=== PATIENT | female | born 1945 | race African-American/Black ===

== ENCOUNTER 2024-10-04 07:09 | Inpatient (IN) | payer MEDICARE, MEDICAID ==
[2024-10-04] VITALS (10 sets, daily range): BP systolic 109–124; BP diastolic 57–72; PULSE 68–104; RESP 11–26; TEMP 36.6–36.6404; O2SAT 99–100
[~2024-10-04] VITALS: Ht 160 cm; Wt 51.7 kg
[2024-10-04] MEDS: METHYLPREDNISOLONE SOD SUCC 125MG/2ML (ACT-O-VIAL) IV ONE (07:25)
[2024-10-04] MEDS: MAGNESIUM 2 G PREMIX 50 ML IV ONE (07:25)
[2024-10-04] MEDS: ALBUTEROL (0.083%) 2.5MG/3ML NEB HHN SCH (07:54)
[2024-10-04] MEDS: IPRATROPIUM BROMIDE (0.02%) 0.5MG/2.5ML NEB HHN SCH (07:55)
[2024-10-04 08:01] LABS: HEMATOCRIT. 42.0 % (36.0-48.0); HEMOGLOBIN. 13.6 g/dL (12.0-16.0); MEAN PLATELET VOLUME 7.6 fl (7.4-10.4); PLATELET 171 x1000/uL (130-400); RED BLOOD CELL COUNT 4.34 mill/uL (4.2-5.4); RED CELL DISTRIBUTION WIDTH 16.1 % (11.6-14.6)
[2024-10-04 08:22] LABS: CREATININE 0.9 mg/dL (0.6-1.0); UREA NITROGEN BLOOD 12 mg/dL (9-23)
[2024-10-04 08:31] LABS: TROPONIN I HIGH SENSITIVITY 120 ng/L (3.0-34)
[2024-10-04 08:36] LABS: BAND% 8.0 % (1.0-6.0); LYMPHOCYTES % MANUAL 2.0 % (20.0-60.0); MONOCYTES % MANUAL 14.0 % (2.0-8.0); NEUTROPHILS % MANUAL 76.0 % (45.0-75.0)
[2024-10-04 08:38] LABS: PLATELET ESTIMATE NORMAL
[2024-10-04 09:57] LABS: BG BASE EXCESS 13.5 mmol/L (-2.0-3.0); BG CARBOXYHEMOGLOBIN 1.5 % (0.5-1.5); BG DEOXYHEMOGLOBIN 5.0 % (0.0-5.0); BG FRACTION INSPIRED OXYGEN 60; BG HCO3 ACT 44.2 mmol/L (21.0-28.0); BG METHEMOGLOBIN 0.2 % (0.5-1.5); BG OXYGEN SATURATION 94.9 % (94.0-98.0); BG OXYHEMOGLOBIN 93.3 % (94.0-98.0); BG PCO2 89.1 mmHg (32.0-45.0); BG PH 7.313 (7.350-7.450); BG PO2 83.4 mmHg (83.0-108.0); BG SAMPLE SITE RIGHT BRACHIAL; BG TOTAL HEMOGLOBIN 14.5 g/dL (12.0-16.0); BG VENT MODE MASK - BIPAP; BG VENT RATE 20.0 set
[2024-10-04 11:55] LABS: BG BASE EXCESS 13.9 mmol/L (-2.0-3.0); BG CARBOXYHEMOGLOBIN 1.0 % (0.5-1.5); BG DEOXYHEMOGLOBIN 4.3 % (0.0-5.0); BG FRACTION INSPIRED OXYGEN 60; BG HCO3 ACT 45.0 mmol/L (21.0-28.0); BG METHEMOGLOBIN 0.2 % (0.5-1.5); BG OXYGEN SATURATION 95.6 % (94.0-98.0); BG OXYHEMOGLOBIN 94.5 % (94.0-98.0); BG PCO2 92.1 mmHg (32.0-45.0); BG PH 7.307 (7.350-7.450); BG PO2 86.9 mmHg (83.0-108.0); BG TOTAL HEMOGLOBIN 14.7 g/dL (12.0-16.0); BG VENT MODE MASK - BIPAP; BG VENT RATE 20.0 set
[2024-10-04] MEDS ORDERED: IPRATROPIUM/ALBUTEROL 0.5-3(2.5)MG/3ML NEB HHN PRN (14:30)
[2024-10-04] MEDS ORDERED: DOCUSATE SODIUM 100MG CAPSULE PO PRN (14:30)
[2024-10-04] MEDS ORDERED: CLONIDINE 0.1MG TABLET PO PRN (14:30)
[2024-10-04] MEDS ORDERED: ACETAMINOPHEN 325MG TABLET PO PRN (14:30)
[2024-10-04] MEDS ORDERED: LISI40TA21 PO (15:43)
[2024-10-04] MEDS ORDERED: OMEP20CA14 PO (15:43)
[2024-10-04] MEDS ORDERED: ASPI-1497 PO (15:43)
[2024-10-04] MEDS ORDERED: AMLO10TA80 PO (15:43)
[2024-10-04] MEDS ORDERED: CARV6.2548 PO (15:43)
[2024-10-04] MEDS ORDERED: VITA1CAP PO (15:43)
[2024-10-04] MEDS ORDERED: MULT-1021 PO (15:43)
[2024-10-04] MEDS: POTASSIUM CHLORIDE 20MEQ TABLET SR PO SCH (15:48)
[2024-10-04] MEDS: ENOXAPARIN 40MG/0.4ML SYR SUBCUT SCH (15:49)
[2024-10-04 16:19] LABS: CREATINE KINASE MB FRACTION 1.5 ng/mL (0.5-3.6)
[2024-10-04 16:21] LABS: ASPARTATE AMINOTRANSFERASE 21 IU/L (<34); BILIRUBIN DIRECT 0.4 mg/dL (<=3.0); BILIRUBIN TOTAL 0.9 mg/dL (0.1-1.0); PROTEIN TOTAL 6.3 g/dL (6.0-8.3)
[2024-10-04] MEDS: METHYLPREDNISOLONE SOD SUCC 40MG/ML (ACT-O-VIAL) IV SCH (16:45)
[2024-10-04] MEDS: FAMOTIDINE 20MG/2ML VIAL IV SCH (16:45)
[2024-10-04] MEDS: DIPHENHYDRAMINE 50MG/ML VIAL IV SCH (16:45)
[2024-10-04] MEDS: PIPERACILLIN/TAZO 3.375G/50ML 50 ML IV SCH (17:39)
[2024-10-04] MEDS: FUROSEMIDE 40MG/4ML VIAL IVP SCH (17:39)
[2024-10-04 18:36] LABS: BG BASE EXCESS 10.5 mmol/L (-2.0-3.0); BG CARBOXYHEMOGLOBIN 0.0 % (0.5-1.5); BG DEOXYHEMOGLOBIN 0.7 % (0.0-5.0); BG FRACTION INSPIRED OXYGEN 100; BG HCO3 ACT 39.5 mmol/L (21.0-28.0); BG METHEMOGLOBIN 0.1 % (0.5-1.5); BG OXYGEN SATURATION 99.3 % (94.0-98.0); BG OXYHEMOGLOBIN 99.2 % (94.0-98.0); BG PCO2 74.6 mmHg (32.0-45.0); BG PH 7.342 (7.350-7.450); BG PO2 240.4 mmHg (83.0-108.0); BG SAMPLE SITE RIGHT BRACHIAL; BG TOTAL HEMOGLOBIN 14.1 g/dL (12.0-16.0); BG VENT MODE MASK - BIPAP; BG VENT RATE 20.0 set
[2024-10-04] MEDS ORDERED: MEGE40TA33 MT (19:42)
[2024-10-04] MEDS ORDERED: ALBU18HF2 IH (19:42)
[2024-10-04] MEDS ORDERED: CALC-959 MT (19:42)
[2024-10-04] MEDS ORDERED: FOLI-43 MT (19:42)
[2024-10-04] MEDS ORDERED: LATA2.5D7 EACHEYE (19:42)
[2024-10-04] MEDS ORDERED: PIPERACILLIN/TAZO 3.375G/50ML 50 ML IV SCH (22:00)
[2024-10-04 22:11] LABS: INR 1.1
[2024-10-04 22:41] LABS: TROPONIN I HIGH SENSITIVITY 274 ng/L (3.0-34)
[2024-10-05] VITALS (15 sets, daily range): BP systolic 97–138; BP diastolic 51–84; PULSE 71–123; RESP 16–26; TEMP 36.3–36.8; O2SAT 90–100
[2024-10-05] MEDS: HYDRALAZINE HCL 25MG TABLET PO SCH (00:15)
[2024-10-05 07:39] LABS: HEMATOCRIT. 41.8 % (36.0-48.0); HEMOGLOBIN. 13.5 g/dL (12.0-16.0); MEAN PLATELET VOLUME 7.9 fl (7.4-10.4); PLATELET 162 x1000/uL (130-400); RED BLOOD CELL COUNT 4.33 mill/uL (4.2-5.4); RED CELL DISTRIBUTION WIDTH 16.0 % (11.6-14.6)
[2024-10-05 08:14] LABS: UREA NITROGEN BLOOD 28 mg/dL (9-23)
[2024-10-05 08:16] LABS: PHOSPHORUS 4.5 mg/dL (2.5-4.9)
[2024-10-05 08:28] LABS: CREATININE 1.9 mg/dL (0.6-1.0); TROPONIN I HIGH SENSITIVITY 200 ng/L (3.0-34)
[2024-10-05 08:29] LABS: TROPONIN I HIGH SENSITIVITY 207 ng/L (3.0-34)
[2024-10-05] MEDS: DEXAMETHASONE 6MG TABLET PO SCH (09:28)
[2024-10-05] MEDS: FAMOTIDINE 20MG/2ML VIAL IV SCH (09:29)
[2024-10-05] MEDS: ASPIRIN 81MG TABLET PO SCH (09:29)
[2024-10-05 10:17] LABS: BAND% 8.0 % (1.0-6.0); LYMPHOCYTES % MANUAL 4.0 % (20.0-60.0); MONOCYTES % MANUAL 4.0 % (2.0-8.0); NEUTROPHILS % MANUAL 84.0 % (45.0-75.0); PLATELET ESTIMATE NORMAL
[2024-10-05 18:01] LABS: BG BASE EXCESS 13.0 mmol/L (-2.0-3.0); BG CARBOXYHEMOGLOBIN 0.3 % (0.5-1.5); BG DEOXYHEMOGLOBIN 0.6 % (0.0-5.0); BG FRACTION INSPIRED OXYGEN 100; BG HCO3 ACT 41.2 mmol/L (21.0-28.0); BG METHEMOGLOBIN 0.1 % (0.5-1.5); BG OXYGEN SATURATION 99.4 % (94.0-98.0); BG OXYHEMOGLOBIN 99.0 % (94.0-98.0); BG PCO2 68.3 mmHg (32.0-45.0); BG PH 7.398 (7.350-7.450); BG PO2 157.5 mmHg (83.0-108.0); BG SAMPLE SITE RIGHT RADIAL; BG TOTAL HEMOGLOBIN 14.3 g/dL (12.0-16.0); BG VENT MODE MASK - BIPAP; BG VENT RATE 20.0 set
[2024-10-06] VITALS (13 sets, daily range): BP systolic 127–142; BP diastolic 69–92; PULSE 75–144; RESP 18–24; TEMP 36.3–36.6; O2SAT 90–100
[2024-10-06] MEDS: ACETAMINOPHEN 325MG TABLET PO PRN (04:31)
[2024-10-06 05:29] LABS: CREATININE 1.5 mg/dL (0.6-1.0); UREA NITROGEN BLOOD 30.0 mg/dL (9-23)
[2024-10-06 06:44] LABS: HEMATOCRIT. 43.7 % (36.0-48.0); HEMOGLOBIN. 14.2 g/dL (12.0-16.0); MEAN PLATELET VOLUME 8.0 fl (7.4-10.4); PLATELET 199 x1000/uL (130-400); RED BLOOD CELL COUNT 4.53 mill/uL (4.2-5.4); RED CELL DISTRIBUTION WIDTH 16.5 % (11.6-14.6)
[2024-10-06 10:54] LABS: BAND% 4.0 % (1.0-6.0); LYMPHOCYTES % MANUAL 10.0 % (20.0-60.0); MONOCYTES % MANUAL 4.0 % (2.0-8.0); NEUTROPHILS % MANUAL 82.0 % (45.0-75.0); PLATELET ESTIMATE NORMAL
[2024-10-06 16:44] LABS: CLARITY URINE CLEAR (CLEAR); COLOR URINE YELLOW (YELLOW); GLUCOSE URINE NEGATIVE (NEGATIVE); KETONES URINE NEGATIVE (NEGATIVE); LEUKOCYTE ESTERASE URINE 1+ (NEGATIVE); NITRITE URINE NEGATIVE (NEGATIVE); OCCULT BLOOD URINE NEGATIVE (NEGATIVE); PH URINE 6.0 (4.5-8.0); PROTEIN URINE 1+ (NEGATIVE); SPECIFIC GRAVITY URINE 1.010 (1.005-1.030); UROBILINOGEN URINE 0.2 E.U./dL (0.2-1.0)
[2024-10-06 16:53] LABS: *AMPHETAMINES SCREEN URINE NEGATIVE (NEGATIVE)
[2024-10-06 16:54] LABS: *BARBITURATES SCREEN URINE NEGATIVE (NEGATIVE); *BENZODIAZEPINES SCREEN URINE NEGATIVE (NEGATIVE); *COCAINE SCREEN URINE NEGATIVE (NEGATIVE); CANNABINOID URINE SCREEN NEGATIVE (NEGATIVE); ECSTASY MDMA SCREEN URINE NEGATIVE (NEGATIVE); METHADONE URINE SCREEN NEGATIVE (NEGATIVE); OPIATES URINE SCREEN NEGATIVE (NEGATIVE); PHENCYCLIDINE URINE SCREEN NEGATIVE (NEGATIVE)
[2024-10-06 17:00] LABS: BACTERIA URINE TRACE; RBC URINE NONE SEEN /hpf (0-2); SQUAMOUS EPITHELIAL CELL URINE RARE /lpf (RARE/1+)
[2024-10-07] VITALS (16 sets, daily range): BP systolic 110–145; BP diastolic 60–115; PULSE 67–127; RESP 18–24; TEMP 36.3–36.6; O2SAT 92–100
[2024-10-07 05:35] LABS: CREATININE 1.1 mg/dL (0.6-1.0); UREA NITROGEN BLOOD 26.0 mg/dL (9-23)
[2024-10-07 06:19] LABS: HEMATOCRIT. 40.4 % (36.0-48.0); HEMOGLOBIN. 13.2 g/dL (12.0-16.0); MEAN PLATELET VOLUME 7.8 fl (7.4-10.4); PLATELET 209 x1000/uL (130-400); RED BLOOD CELL COUNT 4.19 mill/uL (4.2-5.4); RED CELL DISTRIBUTION WIDTH 16.3 % (11.6-14.6)
[2024-10-07] MEDS: ENOXAPARIN 30MG/0.3ML SYR SUBCUT SCH (08:42)
[2024-10-07 14:23] LABS: BAND% 3.0 % (1.0-6.0); LYMPHOCYTES % MANUAL 9.0 % (20.0-60.0); MONOCYTES % MANUAL 6.0 % (2.0-8.0); NEUTROPHILS % MANUAL 82.0 % (45.0-75.0); PLATELET ESTIMATE NORMAL
[2024-10-08] VITALS (13 sets, daily range): BP systolic 115–157; BP diastolic 58–88; PULSE 70–144; RESP 16–28; TEMP 36.2–36.6; O2SAT 87–97
[2024-10-08 05:58] LABS: BASOPHILS % 0.2 % (0.0-2.0); EOSINOPHILS % 0.0 % (0.0-5.0); HEMATOCRIT. 41.3 % (36.0-48.0); HEMOGLOBIN. 13.2 g/dL (12.0-16.0); LYMPHOCYTES % 10.0 % (20.0-50.0); MEAN PLATELET VOLUME 7.7 fl (7.4-10.4); MONOCYTES % 12.6 % (2.0-8.0); NEUTROPHILS % 77.2 % (40.0-76.0); PLATELET 217 x1000/uL (130-400); RED BLOOD CELL COUNT 4.26 mill/uL (4.2-5.4); RED CELL DISTRIBUTION WIDTH 16.2 % (11.6-14.6)
[2024-10-08 06:01] LABS: CREATININE 1.1 mg/dL (0.6-1.0); UREA NITROGEN BLOOD 22 mg/dL (9-23)
[2024-10-08] MEDS: METOPROLOL TARTRATE 25MG TABLET PO SCH (16:40)
[2024-10-08] MEDS: BUDESONIDE 0.5MG/2ML NEB HHN SCH (21:17)
[2024-10-09] VITALS (18 sets, daily range): BP systolic 108–147; BP diastolic 59–87; PULSE 63–137; RESP 16–25; TEMP 36.6–36.7; O2SAT 87–99
[2024-10-09] MEDS: ONDANSETRON HCL 4MG/2ML INJ IV PRN (03:52)
[2024-10-09 08:59] LABS: BASOPHILS % 0.1 % (0.0-2.0); EOSINOPHILS % 0.2 % (0.0-5.0); HEMATOCRIT. 42.7 % (36.0-48.0); HEMOGLOBIN. 13.8 g/dL (12.0-16.0); LYMPHOCYTES % 10.5 % (20.0-50.0); MEAN PLATELET VOLUME 7.9 fl (7.4-10.4); MONOCYTES % 11.3 % (2.0-8.0); NEUTROPHILS % 77.9 % (40.0-76.0); PLATELET 232 x1000/uL (130-400); RED BLOOD CELL COUNT 4.39 mill/uL (4.2-5.4); RED CELL DISTRIBUTION WIDTH 16.3 % (11.6-14.6)
[2024-10-09 09:04] LABS: CREATININE 1.2 mg/dL (0.6-1.0); UREA NITROGEN BLOOD 18 mg/dL (9-23)
[2024-10-09 11:25] LABS: BG BASE EXCESS 16.1 mmol/L (-2.0-3.0); BG CARBOXYHEMOGLOBIN 0.3 % (0.5-1.5); BG DEOXYHEMOGLOBIN 10.9 % (0.0-5.0); BG FLOW(L/min) 7.00 L/min; BG HCO3 ACT 45.4 mmol/L (21.0-28.0); BG METHEMOGLOBIN 0.1 % (0.5-1.5); BG OXYGEN SATURATION 89.1 % (94.0-98.0); BG OXYHEMOGLOBIN 88.7 % (94.0-98.0); BG PCO2 76.2 mmHg (32.0-45.0); BG PH 7.393 (7.350-7.450); BG PO2 59.0 mmHg (83.0-108.0); BG SAMPLE SITE RIGHT RADIAL; BG TOTAL HEMOGLOBIN 15.0 g/dL (12.0-16.0); BG VENT MODE NASAL CANNULA
[2024-10-09] MEDS ORDERED: IPRATROPIUM/ALBUTEROL 0.5-3(2.5)MG/3ML NEB HHN PRN (21:30)
[2024-10-09] MEDS: BENZONATATE 100MG CAPSULE PO SCH (22:17)
[2024-10-10] VITALS (17 sets, daily range): BP systolic 90–135; BP diastolic 56–93; PULSE 70–136; RESP 17–26; TEMP 36.6–37; O2SAT 90–100
[2024-10-10] MEDS: IPRATROPIUM/ALBUTEROL 0.5-3(2.5)MG/3ML NEB HHN SCH (00:55)
[2024-10-10] MEDS: GUAIFENESIN-DM 200MG-20MG/10ML UDC PO PRN (19:03)
[2024-10-11] VITALS (17 sets, daily range): BP systolic 110–143; BP diastolic 63–80; PULSE 69–120; RESP 14–24; TEMP 36.4–36.9; O2SAT 89–100
[2024-10-11] MEDS: METOPROLOL TARTRATE 25MG TABLET PO SCH (12:16)
[2024-10-11 12:36] LABS: HEMATOCRIT. 40.5 % (36.0-48.0); HEMOGLOBIN. 13.1 g/dL (12.0-16.0); MEAN PLATELET VOLUME 8.1 fl (7.4-10.4); PLATELET 282 x1000/uL (130-400); RED BLOOD CELL COUNT 4.20 mill/uL (4.2-5.4); RED CELL DISTRIBUTION WIDTH 16.4 % (11.6-14.6)
[2024-10-11 12:43] LABS: CREATININE 1.1 mg/dL (0.6-1.0); UREA NITROGEN BLOOD 20 mg/dL (9-23)
[2024-10-11 12:46] LABS: PHOSPHORUS 2.5 mg/dL (2.5-4.9)
[2024-10-11 15:52] LABS: EOSINOPHILS % MANUAL 1.0 % (0.0-5.0); LYMPHOCYTES % MANUAL 6.0 % (20.0-60.0); MONOCYTES % MANUAL 7.0 % (2.0-8.0); NEUTROPHILS % MANUAL 86.0 % (45.0-75.0); PLATELET ESTIMATE NORMAL
[2024-10-11] MEDS: METOPROLOL TARTRATE 50MG TABLET PO SCH (22:09)
[2024-10-12] VITALS (15 sets, daily range): BP systolic 109–144; BP diastolic 52–89; PULSE 78–132; RESP 15–26; TEMP 36.4–37; O2SAT 97–100
[2024-10-12 08:34] LABS: BASOPHILS % 0.2 % (0.0-2.0); EOSINOPHILS % 0.9 % (0.0-5.0); HEMATOCRIT. 38.7 % (36.0-48.0); HEMOGLOBIN. 12.7 g/dL (12.0-16.0); LYMPHOCYTES % 12.8 % (20.0-50.0); MEAN PLATELET VOLUME 7.7 fl (7.4-10.4); MONOCYTES % 12.4 % (2.0-8.0); NEUTROPHILS % 73.7 % (40.0-76.0); PLATELET 299 x1000/uL (130-400); RED BLOOD CELL COUNT 4.03 mill/uL (4.2-5.4); RED CELL DISTRIBUTION WIDTH 16.3 % (11.6-14.6)
[2024-10-12 08:57] LABS: CREATININE 1.1 mg/dL (0.6-1.0); UREA NITROGEN BLOOD 25.0 mg/dL (9-23)
[2024-10-13] VITALS (10 sets, daily range): BP systolic 122–138; BP diastolic 65–79; PULSE 86–126; RESP 15–30; TEMP 35–37.1; O2SAT 88–98
[2024-10-13] MEDS: THIAMINE HCL 100MG TABLET PO SCH (08:34)
[2024-10-13] MEDS: FOLIC ACID 1MG TABLET PO SCH (08:35)
[2024-10-13 08:47] LABS: BASOPHILS % 0.1 % (0.0-2.0); EOSINOPHILS % 0.7 % (0.0-5.0); HEMATOCRIT. 39.1 % (36.0-48.0); HEMOGLOBIN. 13.0 g/dL (12.0-16.0); LYMPHOCYTES % 12.1 % (20.0-50.0); MEAN PLATELET VOLUME 7.7 fl (7.4-10.4); MONOCYTES % 13.0 % (2.0-8.0); NEUTROPHILS % 74.1 % (40.0-76.0); PLATELET 317 x1000/uL (130-400); RED BLOOD CELL COUNT 4.14 mill/uL (4.2-5.4); RED CELL DISTRIBUTION WIDTH 16.3 % (11.6-14.6)
[2024-10-13 09:01] LABS: CREATININE 1.2 mg/dL (0.6-1.0)
[2024-10-13 09:02] LABS: UREA NITROGEN BLOOD 25.0 mg/dL (9-23)
[2024-10-13] MEDS: LORAZEPAM 0.5MG TABLET PO PRN (18:05)
[2024-10-14] VITALS (11 sets, daily range): BP systolic 91–134; BP diastolic 54–66; PULSE 73–123; RESP 16–24; TEMP 36.4–37; O2SAT 94–97
[2024-10-14] MEDS: SODIUM CHLORIDE 0.9% 500 ML IV ONE (13:13)
[2024-10-15] VITALS: BP 112/61; PULSE 68; RESP 18; TEMP 36.7; O2SAT 95
[2024-10-15 01:47] VITALS: PULSE 105; RESP 16; O2SAT 98
[2024-10-15 04:00] VITALS: BP 121/50; PULSE 108; RESP 18; TEMP 36.5; O2SAT 95
[2024-10-15 08:00] VITALS: BP 120/65; PULSE 80; RESP 18; TEMP 36.6; O2SAT 98
[2024-10-15 12:00] VITALS: BP 132/67; PULSE 75; RESP 15; TEMP 36.9; O2SAT 100
[2024-10-15 13:05] VITALS: BP 132/67; PULSE 70; RESP 18; TEMP 98.5
[2024-10-15] MEDS ORDERED: METO-539 PO (13:47)
[2024-10-15] MEDS ORDERED: FAMO20TA8 MT (13:47)
== END 2024-10-15 14:43 | DRG 871 ==
LOC: ER 07:09 → EDBEDREQ 08:32 → EDBEDREQTM 08:32 → 5EST 08:35 → EDBEDREQSVC 08:36 → EDBEDREQTM 08:36 → EDBEDREQ 08:36 → ENRESERV 12:12 → 5WST 10-13 23:35
PROVIDERS: ADMIT Internal Medicine; ATTEND Internal Medicine
PROC: 5A09357 Assistance with Respiratory Ventilation, Less than 24 Consecutive Hours, Continuous Positive Airway Pressure (ICD-10-PCS; 2024-10-04)
PROC: 5A09357 Assistance with Respiratory Ventilation, Less than 24 Consecutive Hours, Continuous Positive Airway Pressure (ICD-10-PCS; principal; 2024-10-06)
PROC: 5A09357 Assistance with Respiratory Ventilation, Less than 24 Consecutive Hours, Continuous Positive Airway Pressure (ICD-10-PCS; 2024-10-09)
PROC: 5A09357 Assistance with Respiratory Ventilation, Less than 24 Consecutive Hours, Continuous Positive Airway Pressure (ICD-10-PCS; 2024-10-13)
PROC: 5A09357 Assistance with Respiratory Ventilation, Less than 24 Consecutive Hours, Continuous Positive Airway Pressure (ICD-10-PCS; 2024-10-14)
DX: A41.89 Other specified sepsis (principal); I21.4 Non-ST elevation (NSTEMI) myocardial infarction; U07.1 COVID-19; J96.01 Acute respiratory failure with hypoxia; J96.02 Acute respiratory failure with hypercapnia; J12.82 Pneumonia due to coronavirus disease 2019; J44.1 Chronic obstructive pulmonary disease with (acute) exacerbation; I47.10 Supraventricular tachycardia, unspecified; J44.0 Chronic obstructive pulmonary disease with (acute) lower respiratory infection; Z99.81 Dependence on supplemental oxygen; D64.9 Anemia, unspecified; E87.6 Hypokalemia; I50.9 Heart failure, unspecified; I11.0 Hypertensive heart disease with heart failure; R53.81 Other malaise; R26.9 Unspecified abnormalities of gait and mobility; E11.9 Type 2 diabetes mellitus without complications; Z78.9 Other specified health status; Z87.891 Personal history of nicotine dependence; Z90.710 Acquired absence of both cervix and uterus; Z88.0 Allergy status to penicillin; Z88.8 Allergy status to other drugs, medicaments and biological substances
CPT/HCPCS: 31720; 36415; 36600; 71045; 80048; 80076; 80305; 81003; 82375; 82550; 82553; 82805; 83036; 83605; 83735; 83880; 84100; 84145; 84484; 85025; 85379; 87426; 93005; 93306; 93970; 94003; 94070; 94640; 94660; 94664; 94760; 97162; 97166; 97535; 98960; 99291; A4606; J1308; J1650; J1938; J2405; J2543; J2919; J3475; J7626